=== PATIENT | female | born 1995 | race Caucasian/White ===

== ENCOUNTER 2023-05-15 19:01 | Emergency (ER) | payer BC | END 2023-05-15 20:11 | disposition home or self-care (01) | LOC: JP.ED 19:01 | DX: O26.892 Other specified pregnancy related conditions, second trimester (principal); R10.12 Left upper quadrant pain; R10.32 Left lower quadrant pain; Z3A.26 26 weeks gestation of pregnancy | CPT/HCPCS: 76815; 99283; 99284 ==

== ENCOUNTER 2024-03-27 04:56 | Emergency (ER) | payer BC, MEDICAID ==
[2024-03-27 05:41] LABS: BASOPHILS ABSOLUTE AUTO 0.03 K/uL (0.00-0.10); BASOPHILS PERCENT AUTO 0.5 % (0.1-1.3); EOSINOPHILS ABSOLUTE AUTO 0.06 K/uL (0.00-0.40); EOSINOPHILS PERCENT AUTO 0.9 % (0.0-5.4); HEMATOCRIT 38.1 % (34.3-46.0); HEMOGLOBIN 13.4 g/dL (11.2-15.5); IMMATURE GRAN PERCENT AUTO 0.3 % (0.0-0.7); LYMPHOCYTES ABSOLUTE AUTO 1.83 K/uL (0.8-3.3); LYMPHOCYTES PERCENT AUTO 27.6 % (11.4-47.7); MEAN CORPUSCULAR HEMOGLOBIN 29.3 pg (31.6-35.5); MEAN CORPUSCULAR HGB CONC 35.2 g/dL (31.6-35.5); MEAN CORPUSCULAR VOLUME 83.2 fL (81.4-99.0); MONOCYTES ABSOLUTE AUTO 0.39 K/uL (0.20-0.90); MONOCYTES PERCENT AUTO 5.9 % (3.3-12.6); NEUTROPHILS ABSOLUTE AUTO 4.31 K/uL (1.0-7.6); NEUTROPHILS PERCENT AUTO 64.8 % (40.0-78.1); PLATELET COUNT,PLT 196 K/uL (130-375); RED BLOOD CELL COUNT 4.58 M/uL (3.77-5.24); WHITE BLOOD CELL COUNT,WBC 6.6 K/uL (3.2-11.0)
[2024-03-27 05:47] LABS: IMMATURE GRAN ABSOLUTE AUTO 0.02 K/uL (0.00-0.23)
[2024-03-27 06:05] LABS: CALCIUM 8.5 mg/dL (8.5-10.1); CREATININE 0.8 mg/dL (0.6-1.0); EST CRCL DRUG DOSING (CG) 86.6 mL/min; POTASSIUM,K 3.8 mmol/L (3.6-5.2)
[2024-03-27 06:10] LABS: ANION GAP 14.8 mmol/L (5.0-14.0)
[2024-03-27] MEDS ORDERED: Sodium Chloride 0.9% 10 ML Syringe FLUSH PRN (07:04)
[2024-03-27] MEDS: Sodium Chloride 0.9% 1,000 ML IV SCH (07:24)
[2024-03-27] MEDS: Ketorolac 30 MG/ML SDV IVPUSH ONE (07:24)
[2024-03-27] MEDS: Iopamidol 612 MG/ML 100 ML Bottle IV ONE (07:34)
[2024-03-27] MEDS: Sodium Chloride 0.9% 80 ML IV SCH (07:34)
== END 2024-03-27 08:55 | disposition home or self-care (01) ==
LOC: JP.ED 04:56
DX: R55 Syncope and collapse (principal); N83.202 Unspecified ovarian cyst, left side; Z79.899 Other long term (current) drug therapy; Z91.018 Allergy to other foods
CPT/HCPCS: 36415; 70450; 74177; 80048; 84484; 84703; 85025; 96361; 96374; 99284; J1885; J3490; J7030; Q9967

== ENCOUNTER 2024-11-10 18:44 | Emergency (ER) | payer BC, MEDICAID | END 2024-11-10 19:21 | disposition home or self-care (01) | LOC: JP.ED 18:44 | DX: H65.92 Unspecified nonsuppurative otitis media, left ear (principal); Z79.899 Other long term (current) drug therapy; Z91.018 Allergy to other foods; Z90.710 Acquired absence of both cervix and uterus | CPT/HCPCS: 99282 ==